=== PATIENT | male | born 1990 | race Asian ===

== ENCOUNTER 2021-12-16 11:12 | Day surgery (SDC) | payer OTHER ==
[2021-12-16 11:21] VITALS: BMI 25.0
[2021-12-16] MEDS ORDERED: morphine SULFATE 4 MG/ML VIAL IVPUSH ONE (12:03)
[2021-12-16] MEDS ORDERED: ONDANSETRON 4 MG/2 ML VIAL IVPUSH ONE (12:03)
[2021-12-16] MEDS ORDERED: LACTATED RINGERS SOLUTION 1000 ML INFUS.BAG IV ONE (12:03)
[2021-12-16] MEDS ORDERED: PIPERACILLIN/TAZOB 4.5 GM 4.5 GM in DEXTROSE 5%-WATER 100 ML IVPB ONE (12:17)
[2021-12-16] MEDS ORDERED: morphine CARPU-JECT 2 MG/1 ML DISP.SYRIN IVPUSH PRN (12:58)
[2021-12-16] MEDS ORDERED: LACTATED RINGERS SOLUTION 1,000 ML IV SCH ×2 (13:00→17:49)
[2021-12-16 13:18] LABS: BASO % 0.6 % (0-2.0); HEMATOCRIT 43.6 % (35.4-49); HEMOGLOBIN 15.2 GM/dL (11.7-16.9); LYMPH % 21.2 % (8-40); MCH 32.6 pg (25.7-33.7); MCHC 34.8 g/dl (32.0-35.9); MEAN CELL VOLUME 93.4 fl (80-96); MEAN PLT VOLUME 7.7 fl (7.5-11.1); MONO % 6.2 % (3.8-10.2); PLATELET COUNT 199 10^3/uL (134-434); RBC 4.67 M/mm3 (4.00-5.60); RDW 12.4 % (11.9-15.9); WHITE BLOOD COUNT 6.1 K/mm3 (4.0-10.0)
[2021-12-16 13:28] LABS: ACTIVATED PTT 33.4 SECONDS (25.2-36.5); INR 1.03 (0.83-1.09); PROTHROMBIN TIME (PATIENT) 11.8 SEC (9.7-13.0)
[2021-12-16 13:49] LABS: CALCIUM 9.5 mg/dL (8.5-10.1)
[2021-12-16 13:50] LABS: ALBUMIN 4.1 g/dl (3.4-5.0)
[2021-12-16 13:54] LABS: BILIRUBIN,TOTAL 0.6 mg/dL (0.2-1)
[2021-12-16 13:56] LABS: TOT PROT 7.5 g/dl (6.4-8.2)
[2021-12-16 14:20] LABS: BLOOD UREA NITROGEN 10.6 mg/dL (7-18)
[2021-12-16] MEDS ORDERED: ACETAMINOPHEN 1000 MG/100 ML BAG IVPB PRN (14:34)
[2021-12-16] MEDS ORDERED: morphine SULFATE 4 MG/ML VIAL IVPUSH PRN ×2 (15:00→17:49)
[2021-12-16] MEDS ORDERED: BUPIVACAINE HCL/PF 0.5% (5MG/ML) 10 ML VIAL ONE (15:34)
[2021-12-16] MEDS ORDERED: ONDANSETRON 4 MG/2 ML VIAL ONE (16:15)
[2021-12-16] MEDS ORDERED: DEXAMETHASONE SOD PHOSPHATE 4 MG/1 ML VIAL ONE (16:15)
[2021-12-16] MEDS ORDERED: LIDOCAINE HCL/PF 2% SDV 5ML VIAL ONE (16:15)
[2021-12-16] MEDS ORDERED: ROCURONIUM BROMIDE 50 MG/5 ML SYRINGE ONE (16:16)
[2021-12-16] MEDS ORDERED: PROPOFOL 20 ML ONE ×2 (16:16→17:13)
[2021-12-16] MEDS ORDERED: MIDAZOLAM HCL 2 MG/2 ML SINGLE DOSE VIAL ONE (16:16)
[2021-12-16] MEDS ORDERED: BUPIVACAINE HCL/PF 0.5% (5 MG/ML) 30 ML VIAL IJ ONE (17:12)
[2021-12-16] MEDS ORDERED: NEOSTIGMINE METHYLSULFATE 0.5 MG/1 ML - 10 ML MDV ONE (17:15)
[2021-12-16] MEDS ORDERED: oxyCODONE HCL 5 MG TABLET PO PRN (17:41)
[2021-12-16] MEDS: ACETAMINOPHEN 1000 MG/100 ML BAG IVPB PRN (21:04)
[2021-12-17 07:58] LABS: BASO % 0.1 % (0-2.0); HEMATOCRIT 40.8 % (35.4-49); HEMOGLOBIN 14.8 GM/dL (11.7-16.9); LYMPH % 11.5 % (8-40); MCH 33.3 pg (25.7-33.7); MCHC 36.4 g/dl (32.0-35.9); MEAN CELL VOLUME 91.5 fl (80-96); MEAN PLT VOLUME 7.2 fl (7.5-11.1); MONO % 3.4 % (3.8-10.2); PLATELET COUNT 191 10^3/uL (134-434); RBC 4.45 M/mm3 (4.00-5.60); RDW 11.8 % (11.9-15.9); WHITE BLOOD COUNT 8.8 K/mm3 (4.0-10.0)
[2021-12-17 08:19] VITALS: BP 132/74; PULSE 85; TEMP 98
[2021-12-17 08:22] LABS: BLOOD UREA NITROGEN 10.8 mg/dL (7-18)
[2021-12-17 08:25] LABS: PHOSPHOROUS 4.9 mg/dL (2.5-4.9)
[2021-12-17] MEDS: ACETAMINOPHEN 1000 MG/100 ML BAG IVPB PRN (09:26)
[2021-12-17] MEDS ORDERED: CEFTRIAXONE 1,000 MG in DEXTROSE 5%-WATER - 50 ML IVPB SCH (10:00)
== END 2021-12-17 15:01 | disposition home or self-care (01) ==
LOC: JER 11:12 → UNDOADMIN 12:06 → JERBED 12:06 → JASUSAT 12:06 → JERBED 20:16 → J8W 20:16 → JASUSAT 12-17 15:01
PROVIDERS: ATTEND Internal Medicine
PROC: 0DTJ4ZZ Resection of Appendix, Percutaneous Endoscopic Approach (ICD-10-PCS; principal; 2021-12-16 16:15)
DX: K35.80 Unspecified acute appendicitis (principal)
CPT/HCPCS: 36415; 80048; 80053; 83735; 84100; 85025; 85610; 85730; 86850; 86900; 86901; 88304-TC; 94010; 94760; 99285-25; C9803; U0003; U0005

== ENCOUNTER 2021-12-23 14:44 | Emergency (ER) | payer OTHER ==
[2021-12-23 15:03] VITALS: BMI 25.0
[2021-12-23] MEDS ORDERED: DEXAMETHASONE SOD PHOSPHATE 20 MG/5 ML VIAL IVPB ONE (15:27)
[2021-12-23] MEDS ORDERED: methylPREDNISolone NA SUCC 125 MG/2 ML VIAL IVPB ONE (15:29)
[2021-12-23] MEDS ORDERED: FAMOTIDINE 20 MG/50 ML IVPB 20 MG/50 ML MG IVPB ONE ×2 (15:29→16:00)
[2021-12-23] MEDS ORDERED: SODIUM CHLORIDE 0.9% 500 ML INFUS.BAG IV ONE (15:31)
[2021-12-23] MEDS ORDERED: methylPREDNISolone NA SUCC 125 MG/2 ML VIAL ONE (16:00)
[2021-12-23 16:32] LABS: BASO % 0.3 % (0-2.0); EOS % 4.9 % (0-4.5); HEMATOCRIT 43.6 % (35.4-49); HEMOGLOBIN 15.3 GM/dL (11.7-16.9); LYMPH % 19.9 % (8-40); MCH 32.3 pg (25.7-33.7); MCHC 35.1 g/dl (32.0-35.9); MEAN CELL VOLUME 92.1 fl (80-96); MEAN PLT VOLUME 7.5 fl (7.5-11.1); NEUT % 68.9 % (42.8-82.8); PLATELET COUNT 230 10^3/uL (134-434); RBC 4.73 M/mm3 (4.00-5.60); RDW 12.2 % (11.9-15.9); WHITE BLOOD COUNT 7.7 K/mm3 (4.0-10.0)
[2021-12-23 16:42] LABS: INR 1.08 (0.83-1.09); PROTHROMBIN TIME (PATIENT) 12.4 SEC (9.7-13.0)
[2021-12-23 16:49] LABS: CALCIUM 9.3 mg/dL (8.5-10.1)
[2021-12-23 16:50] LABS: ALBUMIN 4.1 g/dl (3.4-5.0); BLOOD UREA NITROGEN 11.6 mg/dL (7-18)
[2021-12-23 16:55] LABS: BILIRUBIN,TOTAL 0.5 mg/dL (0.2-1)
[2021-12-23 17:54] VITALS: BP 128/81; PULSE 84; TEMP 98.5
== END 2021-12-23 18:30 | disposition home or self-care (01) ==
LOC: JER 14:44
PROC: 3E033GC Introduction of Other Therapeutic Substance into Peripheral Vein, Percutaneous Approach (ICD-10-PCS; principal; 2021-12-23)
DX: L25.9 Unspecified contact dermatitis, unspecified cause (principal); N43.3 Hydrocele, unspecified
CPT/HCPCS: 36415; 76870-TC; 80053; 85025; 85610; 85730; 99284-25